=== PATIENT | female | born 1980 | race Caucasian/White ===

== ENCOUNTER 2019-01-28 14:53 | Emergency (ER) | payer SELFPAY ==
[~2019-01-28] VITALS: Ht 170.2 cm; Wt 70.5 kg
[2019-01-28] MEDS ORDERED: IBUP1TAB6 PO (15:02)
[2019-01-28] MEDS ORDERED: TGTSUS3 PO (15:02)
[2019-01-28] MEDS ORDERED: ACETAMINOPHEN 500 MG TAB PO ONE (16:00)
[2019-01-28 16:12] LABS: HEMATOCRIT 44.1 % (36.0-47.0); HEMOGLOBIN 15.3 g/dl (12.0-15.5); MEAN CORPUSCULAR HEMOGLOBIN 31.8 pg (27.0-33.0); MEAN CORPUSCULAR HGB CONC 34.7 g/dl (32.0-36.5); MEAN CORPUSCULAR VOLUME 91.7 fl (80.0-96.0); PLATELET COUNT, AUTOMATED 221 10^3/uL (150-450); RED BLOOD COUNT 4.81 10^6/uL (4.00-5.40)
[2019-01-28] MEDS ORDERED: MORPHINE 2 MG/ML 1ML SYRINGE (J2270) IV ONE (16:15)
[2019-01-28 16:28] LABS: BLOOD UREA NITROGEN 16 MG/DL (7-18); CALCIUM LEVEL 8.7 MG/DL (8.5-10.1); CARBON DIOXIDE LEVEL 22 MEQ/L (21-32); CHLORIDE LEVEL 109 MEQ/L (98-107); CREATININE FOR GFR 0.59 MG/DL (0.55-1.30); GLOMERULAR FILTRATION RATE > 60.0 (>60); GLUCOSE, FASTING 95 MG/DL (70-100); SODIUM LEVEL 138 MEQ/L (136-145)
[2019-01-28] MEDS ORDERED: ISOVUE-370 76% 100ML VIAL (Q9967) As Ordered ONE (17:12)
[2019-01-28] MEDS ORDERED: diphenhydrAMINE INJ 50MG/ML VIAL (J1200) IV ONE (17:45)
--- NOTE | 2019-01-28 17:45 | REP ---
Clinical: Neck swelling. Technique: Axial contrast enhanced images from the skull base to the thoracic inlet with coronal and sagittal re-formations using 100 ml Isovue 370 intravenous contrast material. Findings: Few bilateral cervical chain lymph nodes are identified measure up to approximately 12.5 mm. The airway is patent, midline and normal. The surrounding soft tissue structures are symmetric and normal there is no evidence for abscess, mass or mass effect. Oropharynx through hypopharynx appears relatively normal. Vascular structures are symmetric and normal. The osseous structures are intact. Visualized sinuses are clear. Impression: 1. Few bilateral prominent cervical chain lymph nodes. 2. Otherwise normal contrast enhanced neck without evidence for mass, abscess or mass effect. 3. Airway remains patent, midline and normal. Electronically Signed by Babar Velasco MD 01/28/2019 05:36 P
[2019-01-28] MEDS ORDERED: methylPREDNISolone INJ 125 MG/2 ML VIAL (J2930) IV ONE (18:00)
[2019-01-28] MEDS ORDERED: CLINDAMYCIN 900 MG in APPROPRIATE DILUENT 1 EA IV ONE (18:00)
[2019-01-28] MEDS ORDERED: KETOROLAC 30 MG/ML VIAL (J1885) IM ONE (18:00)
[2019-01-28] MEDS ORDERED: KETOROLAC 30 MG/ML VIAL (J1885) IV ONE ×2 (18:00→18:15)
[2019-01-28 18:48] VITALS: BP 115/59
[2019-01-28] MEDS ORDERED: CLEO300C2 PO (19:21)
[2019-01-28] MEDS ORDERED: ACET-716 PO ×2 (19:21→19:28)
[2019-01-28] MEDS ORDERED: ACETAMINOPH W/CODEINE #3 TAB UD PO ONE (19:45)
== END 2019-01-28 19:50 | disposition home or self-care (01) ==
LOC: M ED 14:53
DX: R68.84 Jaw pain (principal); K08.89 Other specified disorders of teeth and supporting structures; Z97.2 Presence of dental prosthetic device (complete) (partial); Z72.0 Tobacco use; F10.10 Alcohol abuse, uncomplicated; Z88.8 Allergy status to other drugs, medicaments and biological substances
CPT/HCPCS: 36415; 70491; 80048; 85027; 96365; 96375; 99284; J1200; J1885; J2270; J2930; Q9967

== ENCOUNTER 2019-01-30 01:12 | Emergency (ER) | payer SELFPAY ==
[~2019-01-30] VITALS: Ht 170.2 cm; Wt 72.7 kg
[~2019-01-30 01:12] MED LIST: ACET-716 PO; CLEO300C2 PO; IBUP1TAB6 PO; TGTSUS3 PO
[2019-01-30] MEDS ORDERED: NORCO, ANEXSIA 5/325MG TABLET (HYDROcodone/ACETAMINOPHEN) PO ONE (01:30)
[2019-01-30] MEDS ORDERED: KETOROLAC 60 MG/2 ML VIAL (J1885) IM ONE (01:30)
[2019-01-30] MEDS ORDERED: methylPREDNISolone INJ 125 MG/2 ML VIAL (J2930) IM ONE (01:30)
[2019-01-30 02:27] VITALS: BP 135/74
== END 2019-01-30 03:16 | disposition home or self-care (01) ==
LOC: M ED 01:12
DX: K08.89 Other specified disorders of teeth and supporting structures (principal); N28.9 Disorder of kidney and ureter, unspecified; Z88.8 Allergy status to other drugs, medicaments and biological substances
CPT/HCPCS: 96372; 99283; J1885; J2930